=== PATIENT | female | born 1995 | race African-American/Black ===

== ENCOUNTER 2017-11-22 20:39 | Emergency (ER) | payer MEDICAID ==
[~2017-11-22] VITALS: Ht 165.1 cm; Wt 59.0 kg
[2017-11-22] MEDS ORDERED: ACETAMINOPHEN 325MG TABLET PO ONE (23:45)
[2017-11-22 23:58] LABS: CLARITY URINE TURBID (CLEAR); COLOR URINE YELLOW (YELLOW); KETONES URINE NEGATIVE (NEGATIVE); LEUKOCYTE ESTERASE URINE TRACE (NEGATIVE); NITRITE URINE NEGATIVE (NEGATIVE); OCCULT BLOOD URINE NEGATIVE (NEGATIVE); PROTEIN URINE NEGATIVE (NEGATIVE); SPECIFIC GRAVITY URINE 1.026 (1.005-1.030)
[2017-11-23 00:13] LABS: BASOPHILS % 0.9 % (0.0-2.0); EOSINOPHILS % 2.7 % (0.0-5.0); HEMATOCRIT. 36.6 % (36.0-48.0); HEMOGLOBIN. 12.2 g/dL (12.0-16.0); MEAN PLATELET VOLUME 8.5 fl (7.4-10.4); MONOCYTES % 6.3 % (2.0-8.0); NEUTROPHILS % 64.1 % (40.0-76.0); PLATELET 345 x1000/uL (130-400); RED BLOOD CELL COUNT 4.07 mill/uL (4.2-5.4); RED CELL DISTRIBUTION WIDTH 14.4 % (11.6-14.6)
[2017-11-23 00:21] LABS: CHLORIDE 107 mEq/L (98-107)
[2017-11-23 00:47] LABS: B-HCG QUANTITATIVE 18524 mIU/mL (<3)
[2017-11-23 02:38] VITALS: BP 107/67
== END 2017-11-23 02:44 | disposition home or self-care (01) ==
LOC: ER 23:28
DX: O26.891 Other specified pregnancy related conditions, first trimester (principal); R10.32 Left lower quadrant pain; O99.511 Diseases of the respiratory system complicating pregnancy, first trimester; J45.909 Unspecified asthma, uncomplicated; Z88.8 Allergy status to other drugs, medicaments and biological substances; Z3A.01 Less than 8 weeks gestation of pregnancy
CPT/HCPCS: 36415; 76801; 76817; 80048; 81003; 81025; 84702; 85025; 86850; 86900; 86901; 99285; Z7610

== ENCOUNTER 2018-04-18 22:48 | Emergency (ER) | payer MEDICAID ==
[~2018-04-18] VITALS: Ht 165.1 cm; Wt 69.0 kg
[2018-04-19 00:26] VITALS: BP 110/54
== END 2018-04-19 03:00 | disposition left against medical advice (07) ==
LOC: ER 22:48
DX: Z53.21 Procedure and treatment not carried out due to patient leaving prior to being seen by health care provider (principal); Z88.8 Allergy status to other drugs, medicaments and biological substances

== ENCOUNTER 2020-07-21 20:20 | Emergency (ER) | payer MEDICAID ==
[~2020-07-21] VITALS: Ht 167.6 cm; Wt 78.7 kg
[2020-07-21] MEDS ORDERED: ACETAMINOPHEN 325MG TABLET PO STA (21:19)
[2020-07-21 23:20] VITALS: BP 119/71
== END 2020-07-21 23:48 | disposition home or self-care (01) ==
LOC: ER 20:20
DX: R07.9 Chest pain, unspecified (principal); J45.909 Unspecified asthma, uncomplicated; Z88.8 Allergy status to other drugs, medicaments and biological substances; Z98.890 Other specified postprocedural states
CPT/HCPCS: 71045; 81025; 93005; 99283

== ENCOUNTER 2022-12-25 12:05 | Emergency (ER) | payer MEDICAID ==
[~2022-12-25] VITALS: Ht 165.1 cm; Wt 53.0 kg
[2022-12-25 12:33] VITALS: BP 122/61
== END 2022-12-25 14:21 | disposition home or self-care (01) ==
LOC: ER 13:09
DX: S60.221A Contusion of right hand, initial encounter (principal); Z98.890 Other specified postprocedural states; Y04.0XXA Assault by unarmed brawl or fight, initial encounter; Y93.89 Activity, other specified; Y92.89 Other specified places as the place of occurrence of the external cause; Y99.8 Other external cause status
CPT/HCPCS: 73130; 99283